=== PATIENT | female | born 1975 | race Caucasian/White ===

== ENCOUNTER 2017-06-23 15:34 | Emergency (ER) | payer SELFPAY ==
[~2017-06-23] VITALS: Ht 165.1 cm; Wt 93.6 kg
[2017-06-23 15:46] VITALS: BP 179/111; PULSE 115; RESP 18; TEMP 98.6; O2SAT 95
[2017-06-23] MEDS ORDERED: SODIUM CHLORIDE 0.9% FLUSH 10 ML FLUSH IVF PRN (19:00)
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
--- NOTE | 2017-06-23 19:33 | RADRPT ---
EXAM DATE/TIME: 06/23/2017 19:13 [facility] COMPARISON: No previous studies available for comparison. INDICATIONS : Chest pain for 1 week MEDICAL HISTORY : None. SURGICAL HISTORY : None. ENCOUNTER: Initial ACUITY: 1 week PAIN SCORE: 5/10 LOCATION: Bilateral chest FINDINGS: A single view of the chest demonstrates the lungs to be symmetrically aerated without evidence of mas s, infiltrate or effusion. The cardiomediastinal contours are unremarkable. Osseous structures are intact. CONCLUSION: No acute intrathoracic disease. Kristian Emmanuel MD on June 23, 2017 at 19:31 Board Certified Radiologist. This report was verified electronically.
[2017-06-23 19:42] LABS: AUTOMATED NEUTROPHIL # 8.2 TH/MM3 (1.8-7.7); BASOPHIL # 0.3 TH/MM3 (0-0.2); BASOPHIL % 2.5 % (0.0-2.0); EOSINOPHIL % 0.3 % (0.0-4.0); HEMATOCRIT 45.6 % (35.0-46.0); HEMOGLOBIN 15.1 GM/DL (11.6-15.3); LYMPH % 20.5 % (9.0-44.0); LYMPHOCYTE # 2.3 TH/MM3 (1.0-4.8); MEAN CELL VOLUME 87.8 FL (80.0-100.0); MEAN CORPUSCULAR HGB CONC 33.1 % (32.0-36.0); MONO % 2.9 % (0.0-8.0); MONOCYTE # 0.3 TH/MM3 (0-0.9); NEUT % 73.8 % (16.0-70.0); PLATELET COUNT 426 TH/MM3 (150-450); RED CELL DISTRIBUTION WIDTH 12.5 % (11.6-17.2); WHITE BLOOD COUNT 11.1 TH/MM3 (4.0-11.0)
[2017-06-23 19:51] VITALS: BP_SYST 163; BP_DIAS 83; BP_DIAS 92
[2017-06-23 19:52] VITALS: BP 163/83
[2017-06-23 19:53] LABS: CHLORIDE 100 MEQ/L (98-107); SODIUM (NA) 134 MEQ/L (136-145)
[2017-06-23 19:56] LABS: BICARBONATE 27.8 MEQ/L (21.0-32.0); CALCIUM 9.2 MG/DL (8.5-10.1); GLUCOSE,RANDOM 98 MG/DL (74-106); MAGNESIUM 2.4 MG/DL (1.5-2.5)
[2017-06-23 19:57] LABS: BLOOD UREA NITROGEN 5 MG/DL (7-18); PROTHROMBIN TIME - PATIENT 10.2 SEC (9.8-11.6)
[2017-06-23 20:00] LABS: GLOMERULAR FILTRATION RATE 55 ML/MIN (>89)
[2017-06-23 20:05] LABS: TROPONIN I LESS THAN 0.02 NG/ML (0.02-0.05)
[2017-06-23] MEDS ORDERED: LORazepam 2 MG/ML VIAL IV PUSH ONE (20:15)
[2017-06-23] MEDS ORDERED: AMOX875T PO (20:58)
[2017-06-23 21:15] VITALS: BP 154/85
--- NOTE | 2017-06-24 20:16 | EKG ---
Date Performed: 06/23/2017 Time Performed: 19:09:22 PTAGE: 41 years EKG: Sinus rhythm LOW QRS VOLTAGE IN PRECORDIAL LEADS POSSIBLE RIGHT VENTRICULAR CONDUCTION DELAY BORDERLINE ECG NO PREVIOUS TRACING DOCTOR: Paulino Maradiaga Interpretating Date/Time 06/24/2017 20:14:28
== END 2017-06-23 21:15 | disposition home or self-care (01) ==
LOC: EDBD 15:34 → MERGE 15:34 → PHED 15:34 → PHEFT 21:15
DX: J01.90 Acute sinusitis, unspecified (principal); R07.89 Other chest pain; R94.31 Abnormal electrocardiogram [ECG] [EKG]
CPT/HCPCS: 71045; 80048; 82550; 82552; 83735; 84484; 85025; 85610; 85730; 93005; 96374; 99285; J2060